=== PATIENT | female | born 1970 | race Caucasian/White ===

== ENCOUNTER → 2017-05-15 12:38 | Outpatient (REF) | payer BC, SELFPAY ==
[2017-05-15 18:14] LABS: Basophils # 0.1 K/mm3 (0-0.2); Basophils % 1.5 % (0.1-2.0); Eosinophils # 0.1 K/mm3 (0.0-0.4); Eosinophils % 1.5 % (0.1-12.0); Hematocrit 39.6 % (37.0-47.0); Hemoglobin 12.6 g/dL (12.2-16.2); Lymphocytes # 1.2 K/mm3 (0.7-4.5); Lymphocytes % 30.5 K/mm3 (10-50); Mean Corpuscular HGB Conc 31.8 g/dL (31.8-35.4); Mean Corpuscular Hemoglobin 30.1 pg (27.0-31.2); Mean Corpuscular Volume 94.8 fl (81-99); Monocytes # 0.2 K/mm3 (0.1-1.0); Monocytes % 5.2 % (1.7-9.3); Neutrophils # 2.4 K/mm3 (1.8-7.8); Neutrophils % 61.2 % (37.0-80.0); Platelet Count 192 K/mm3 (142-424); Red Blood Count 4.18 M/mm3 (4.20-5.40); Red Cell Distribution Width 13.1 % (11.5-17.5); White Blood Count 3.9 K/mm3 (4.8-10.8)
[2017-05-15 19:02] LABS: Erythrocyte Sedimentation Rate 20 mm/hr (0-20)
[2017-05-15 19:53] LABS: Alanine Aminotransferase 32 U/L (12-78); Albumin Level 4.1 gm/dL (3.4-5.0); Albumin/Globulin Ratio 1.4 (1.1-1.8); Alkaline Phosphatase 64 U/L (46-116); Anion Gap 13.5 mEq/L (5-15); Aspartate Amino Transferase 15 U/L (15-37); Bilirubin,Total 0.7 mg/dL (0.2-1.0); Blood Urea Nitrogen 15 mg/dL (7-18); Calcium 9.1 mg/dL (8.5-10.1); Carbon Dioxide 29 mmol/L (21.0-32.0); Chloride 105 mmol/L (98-107); Creatinine,Serum 0.82 mg/dL (0.55-1.02); Estimated Glomerular Filt Rate 76 ml/min (>60); Ferritin 105 ng/mL (8-388); GFR (African American) 92 ML/MIN (>60); Globulin 2.9 gm/dl (1.3-3.2); Glucose 142 mg/dL (74-106); Potassium 4.5 mmoL/L (3.5-5.1); Sodium 143 mmol/L (136-145); Thyroid Stimulating Hormone 1.01 uIU/ml (0.358-3.740)
[2017-05-17 09:20] LABS: Iron 99 ug/dL (27-159); UIBC 193 ug/dL (131-425)
[2017-05-19 12:01] LABS: Anti-Cyclic Citrullinated Pept 2 units (0-19); Iron Saturation 34 % (15-55); RA Latex Turbid. <10.0 IU/mL (0.0-13.9); Vitamin D 25 Hydroxy 29.9 ng/mL (30.0-100.0)
== END ==
LOC: LAB 12:38
PROVIDERS: Visit Provider Physician Assistant
DX: M06.9 Rheumatoid arthritis, unspecified (principal); H93.13 Tinnitus, bilateral; R53.83 Other fatigue
CPT/HCPCS: 80053; 82652; 82728; 83550; 84443; 85025; 85651; 86200; 86431

== ENCOUNTER → 2017-06-12 08:35 | Outpatient (REF) | payer BC, SELFPAY ==
[2017-06-12 14:03] LABS: Amphetamine/Metha Screen,Urine Negative ng/mL (<1000); Barbiturates Screen,Urine Negative ng/mL (<200); Benzodiazepines Screen,Urine Negative ng/mL (200); Cannabinoid Screen,Urine Negative ng/mL (<50); Cocaine Screen,Urine Negative ng/g (<300); Methadone Screen,Urine Negative ng/mL (<300); Opiate Screen,Urine Positive ng/mL (<300); Phencyclidine Screen,Urine Negative ng/mL (<25)
== END ==
LOC: LAB 08:35
PROVIDERS: Visit Provider Physician Assistant
DX: Z79.899 Other long term (current) drug therapy (principal)
CPT/HCPCS: 80305

== ENCOUNTER → 2017-07-03 08:47 | Outpatient (CLI) | payer BC, SELFPAY ==
--- NOTE | 2017-07-03 08:51 | XR_ITS ---
XR elbow RT min 3V, XR forearm RT 2V Ordering Physician: STEPHANIE Mendoza Patient Age: 46 years: Female HISTORY: ITS.REASON: pain after fall 06/29/17 TECHNIQUE: Right elbow: 3 view elbow right Right forearm 2 views COMPARISON :No previous RIGHT ELBOW: 3 view No discrete fracture identified nor dislocation. Upper normal anterior fat-pad probably within normal limits. No posterior fat pad. Radial head is intact. Elbow joint space well maintained. IMPRESSION Negative right elbow. No good evidence of fracture anterior fat pad appears upper normal prominence. If There is persistent pain consider follow-up RIGHT FOREARM 2 views The right form is intact with no fracture evident. Radius and ulna satisfactory. Normal contour. The forearm study includes 2 views of the elbow and wrist which are grossly unremarkable. IMPRESSION : negative right forearm no fracture..
--- NOTE | 2017-07-03 08:51 | XR_ITS ---
XR humerus RT Ordering Physician: STEPHANIE Mendoza Patient Age: 46 years: Female HISTORY: ITS.REASON: pain after fall 06/29/17 TECHNIQUE: 2 views humerus COMPARISON :None FINDINGS Right humerus is intact with no fracture evident. Regional soft tissues normal . Partially imaged right shoulder and elbow unremarkable on these IMPRESSION: Negative right humerus. No fracture
--- NOTE | 2017-07-03 08:51 | XR_ITS ---
XR shoulder RT min 2V Ordering Physician: STEPHANIE Mendoza Patient Age: 46 years: Female HISTORY: ITS.REASON: Pain after fall 06/29/17 TECHNIQUE: 3 views right shoulder COMPARISON :Right humerus from today otherwise no prior FINDINGS The right shoulder was intact with no fracture or dislocation evident. Humeral head and neck are intact. The glenoid and glenohumeral joint intact. AC joint intact. Upper right ribs right lung apex satisfactory. Scapula unremarkable on these images IMPRESSION: Negative right shoulder
== END ==
PROVIDERS: PCP Physician Assistant; Visit Provider Physician Assistant
DX: S49.91XA Unspecified injury of right shoulder and upper arm, initial encounter (principal)
CPT/HCPCS: 73030; 73060; 73080; 73090

== ENCOUNTER → 2017-08-03 14:46 | Outpatient (CLI) | payer BC, SELFPAY ==
--- NOTE | 2017-08-03 14:48 | XR_ITS ---
XR elbow RT min 3V HISTORY: Pain following injury ITS.REASON: right elbow injury ORDERING PHYSICIAN: STEPHANIE Mendoza PATIENT AGE: 46 years COMPARISON: FINDINGS: BONY STRUCTURES: No fracture or dislocation. No lytic or blastic change. Normal mineralization. SOFT TISSUES: Unremarkable. No radio opaque foreign bodies. No displaced fat pad. JOINT SPACE: Well-preserved. No significant arthritic changes evident. IMPRESSION: Negative elbow.
== END ==
PROVIDERS: PCP Physician Assistant; Visit Provider Physician Assistant
DX: S59.901A Unspecified injury of right elbow, initial encounter (principal)
CPT/HCPCS: 73080

== ENCOUNTER → 2017-09-06 16:52 | Outpatient (REF) | payer BC, SELFPAY ==
[2017-09-06 18:43] LABS: Basophils % 0.6 % (0.1-2.0); Eosinophils % 0.5 % (0.1-12.0); Hematocrit 37.9 % (37.0-47.0); Hemoglobin 11.8 g/dL (12.2-16.2); Lymphocytes # 1.6 K/mm3 (0.7-4.5); Lymphocytes % 34.5 K/mm3 (10-50); Mean Corpuscular HGB Conc 31.2 g/dL (31.8-35.4); Mean Corpuscular Hemoglobin 29.8 pg (27.0-31.2); Mean Corpuscular Volume 95.5 fl (81-99); Mean Platelet Volume 8.9 fl (7.4-10.4); Monocytes # 0.3 K/mm3 (0.1-1.0); Monocytes % 5.6 % (1.7-9.3); Neutrophils # 2.7 K/mm3 (1.8-7.8); Neutrophils % 58.8 % (37.0-80.0); Platelet Count 230 K/mm3 (142-424); Red Blood Count 3.97 M/mm3 (4.20-5.40); Red Cell Distribution Width 12.8 % (11.5-17.5); White Blood Count 4.6 K/mm3 (4.8-10.8)
[2017-09-06 19:27] LABS: Alanine Aminotransferase 31 U/L (12-78); Albumin/Globulin Ratio 1.4 (1.1-1.8); Alkaline Phosphatase 62 U/L (46-116); Anion Gap 11.9 mEq/L (5-15); Aspartate Amino Transferase 20 U/L (15-37); Bilirubin,Total 0.5 mg/dL (0.2-1.0); Blood Urea Nitrogen 15 mg/dL (7-18); Calcium 9.6 mg/dL (8.5-10.1); Carbon Dioxide 30 mmol/L (21.0-32.0); Chloride 104 mmol/L (98-107); Chol/HDL Ratio 2.4 (1-3.5); Cholesterol 186 mg/dL (140-200); Creatinine,Serum 0.71 mg/dL (0.55-1.02); Estimated Glomerular Filt Rate 89 ml/min (>60); GFR (African American) 108 ML/MIN (>60); Globulin 2.9 gm/dl (1.3-3.2); Glucose 87 mg/dL (74-106); HDL Cholesterol 79 mg/dL (29-89); LDL Cholesterol 90 mg/dL (0-130); Magnesium 1.9 mg/dL (1.4-2.2); Potassium 3.9 mmoL/L (3.5-5.1); Sodium 142 mmol/L (136-145); T4 (Thyroxine) 7.8 ug/dl (4.7-13.3); Thyroid Stimulating Hormone 0.87 uIU/ml (0.358-3.740); Total Protein,Serum 6.9 gm/dL (6.4-8.2); Triglycerides 83 mg/dL (30-200); VLDL Cholesterol 17 mg/dL (0-40)
== END ==
LOC: LAB 16:52
PROVIDERS: Visit Provider Physician Assistant
DX: G25.3 Myoclonus (principal)
CPT/HCPCS: 80053; 80061; 82652; 83735; 84436; 84443; 85025

== ENCOUNTER → 2017-10-30 08:21 | Outpatient (POV) | payer BC, SELFPAY | PROVIDERS: Family Provider Internal Medicine Adolescent Medicine; PCP Physician Assistant; Visit Provider Specialist | DX: G25.3 Myoclonus (principal) | CPT/HCPCS: 95819 ==

== ENCOUNTER → 2017-11-28 09:05 | Outpatient (REF) | payer BC, SELFPAY ==
[2017-12-01 13:20] LABS: Folate 6.6 ng/mL (>3.0); Vitamin B12 770 pg/mL (232-1245)
== END ==
LOC: LAB 09:05
PROVIDERS: Visit Provider Physician Assistant
DX: M25.569 Pain in unspecified knee (principal)
CPT/HCPCS: 82607; 82746

== ENCOUNTER → 2017-12-01 15:13 | Outpatient (CLI) | payer BC, SELFPAY ==
--- NOTE | 2017-12-01 15:15 | XR_ITS ---
XR hip BI w PEL1V Ordering Physician: Sonia Rivera Patient Age: 46 years: Female HISTORY: ITS.REASON: pain knee pain. Legs give out. Resulting in patient falls. Knee pain greater than hip pain/discomfort . TECHNIQUE: AP pelvis radiograph with bilateral hips AP to include: frog-leg view left hip and right hip COMPARISON :None relevant ======== AP PELVIS. Osseous pelvis appears intact. No fracture or acute findings. No significant findings Hip joint spaces well-maintained. AP view the hips unremarkable. Sacrum and SI joint satisfactory. ====== RIGHT HIP: Negative, & intact. No fracture nor dislocation. femoral head and neck intact. Right hip joint space well maintained... No significant findings at the right hip. Femoral head normal contour with femoral neck intact ========= LEFT HIP : femoral head and neck intact. The left hip joint space well maintained... No significant findings at the left hip. Femoral head normal contour and density ----IMPRESSION 1. Osseous pelvis intact. & Negative 2. Right and left hip intact. & Negative Hip joint spaces well maintained bilateral
--- NOTE | 2017-12-01 15:15 | XR_ITS ---
XR knee RT 4V Ordering Physician: Sonia Rivera Patient Age: 46 years: Female HISTORY: ITS.REASON: pain TECHNIQUE: 3 views right knee COMPARISON :Left knee from today FINDINGS Right knee intact and negative. Joint spaces well-maintained. No joint effusion. Bones well mineralized. Normal relationships. Consider sunrise view right left knee if symptoms persist and/or if if there is any patella tracking abnormality suggested clinically IMPRESSION: Right knee intact. Negative
--- NOTE | 2017-12-01 15:15 | XR_ITS ---
XR knee LT 4V Ordering Physician: Sonia Rivera Patient Age: 46 years: Female HISTORY: ITS.REASON: Left knee pain .. Weakness. TECHNIQUE: 3 views left knee AP lateral and oblique COMPARISON :March 2017 FINDINGS . No joint effusion. No evidence of fracture. Joint spaces well-maintained. Been subtlelucent line passing vertically oblique fashion through the lateral femoral condyle and continuing through the lateral tibia just lateral to the tibial spine is seen only on AP view it appears to be a artifact line. It likely fat plane . Bones well mineralized. Patella normal lateral view IMPRESSION: Left knee intact./Negative Joint spaces well-maintained. No effusion or acute findings. .
== END ==
PROVIDERS: PCP Physician Assistant; Visit Provider Nurse Practitioner Family
DX: M25.562 Pain in left knee (principal); M25.561 Pain in right knee; M25.551 Pain in right hip; M25.552 Pain in left hip
CPT/HCPCS: 73521; 73564

== ENCOUNTER 2017-12-29 09:00 | Outpatient (RCR) | payer BC, SELFPAY ==
--- NOTE | 2017-12-05 10:47 | [facility].PTOPEV ---
PT Outpatient Evaluation Rehab PT Outpatient Evaluation Start: 12/05/17 10:35 Freq: Status: Active Protocol: Document 12/05/17 10:36 [facility] (Rec: 12/05/17 10:46 NARA [id number]) Electronically Signed By Dario Bass, PT 12/05/17 10:36 Outpatient Therapy Subjective History Subjective History Pt is a 46 year old female presenting to outpatient PT with reports of left medial knee pain staring 07/2017 after a fall when stepping out of the shower at home. No previous Rx for knee pain. Pt reports popping, clicking, locking and giving out. Chief Complaint Pain Stiff Swelling Catches/Locks Gives out/Unstable Symptom Type Ache Sharp Stabbing Burning Symptoms Relieved By Rest/Positioning Heat Ice Prescription Meds Prior Functional Limitations None Current Functional Limitations Housework Standing Sitting Squatting Recreation Activity Walking Stairs Bending/Stooping Symptom Description Constant and Continuous Level of pain today (0-10) 5 Pain scale - at its best (0-10) 3 Pain scale - at its worst (0-10) 8 Hip/Knee Eval Gait Observation General Gait Pattern Observation Antalgic Gait Assistive Device Assistive Devices None / NA Palpation Tenderness left Knee Palpation Finding Tenderness Knee Palpation Overall Comment medial jt line, pes anserene Hip Palpation Findings Tenderness MMT right Hip Flexion Strength Grade 4 Good Hip Abduction Strength Grade 4 Good Hip Adduction Strength Grade 4 Good Hip Extension Strength Grade 4 Good Hip External Rotation Strength Grade 4 Good Hip Internal Rotation Strength Grade 4 Good Knee Extension Strength Grade 4 Good Knee Flexion Strength Grade 4 Good left Hip Abduction Strength Grade 4- Good- Hip Adduction Strength Grade 4- Good- Hip Extension Strength Grade 4- Good- Hip External Rotation Strength Grade 4 Good Hip Internal Rotation Strength Grade 4- Good- Knee Extension Stre
== END 2017-12-29 09:01 | disposition home or self-care (01) ==
LOC: PT 09:00
PROVIDERS: Family Provider Internal Medicine Adolescent Medicine; PCP Physician Assistant; Visit Provider Physician Assistant
DX: M25.562 Pain in left knee (principal); M48.02 Spinal stenosis, cervical region
CPT/HCPCS: 97010; 97014; 97035; 97110; 97140; 97163; G0283

== ENCOUNTER → 2017-12-29 09:42 | Outpatient (CLI) | payer BC, SELFPAY ==
--- NOTE | 2017-12-29 09:47 | US_ITS ---
US extremity LT limited HISTORY: ITS.REASON: nodule left thigh ORDERING PHYSICIAN: STEPHANIE Mendoza PATIENT AGE: 47 years COMPARISON: None FINDINGS: Palpable nodule along the aspect of the left thigh was scanned and shows a slightly hyperechoic fairly well-circumscribed subcutaneous nodule which measures 14 x 10 x 7 mm consistent with a lipoma. No posterior acoustical shadowing. No hypervascularity. IMPRESSION: Palpable abnormality of the left thigh appears to represent a lipoma
== END ==
PROVIDERS: Family Provider Internal Medicine Adolescent Medicine; PCP Physician Assistant; Visit Provider Physician Assistant
DX: R22.42 Localized swelling, mass and lump, left lower limb (principal)
CPT/HCPCS: 76882

== ENCOUNTER → 2018-01-15 16:22 | Outpatient (CLI) | payer BC, SELFPAY ==
--- NOTE | 2018-01-15 16:23 | MR_ITS ---
MR knee LT wo con HISTORY: Left knee pain and swelling with limited range of motion ITS.REASON: Left knee pain ORDERING PHYSICIAN: STEPHANIE Mendoza PATIENT AGE: 47 years Comparison: 12/01/2017 TECHNIQUE: Standard multiplanar multiecho sequences are performed without contrast. FINDINGS: The cruciate ligaments are intact. The collateral ligaments, patellar tendon, quadriceps tendon have an unremarkable appearance. There is a horizontal tear involving the posterior horn of the medial meniscus which extends to the tibial articular surface. The tear is nondisplaced. The lateral meniscus has an unremarkable appearance. The patellar cartilage is preserved. No fracture or dislocation. No bone bruises. There is a small knee joint effusion. No significant arthritic changes. IMPRESSION: Nondisplaced horizontal tear involves the posterior horn of the medial meniscus
== END ==
PROVIDERS: Family Provider Internal Medicine Adolescent Medicine; PCP Physician Assistant; Visit Provider Physician Assistant
DX: M25.562 Pain in left knee (principal)
CPT/HCPCS: 73721

== ENCOUNTER → 2018-06-01 10:01 | Outpatient (CLI) | payer BC, SELFPAY ==
[2018-06-01 10:23] LABS: Basophils # 0.1 K/mm3 (0-0.2); Basophils % 1.1 % (0.1-2.0); Eosinophils # 0.1 K/mm3 (0.0-0.4); Hematocrit 37.8 % (37.0-47.0); Hemoglobin 12.3 g/dL (12.2-16.2); Lymphocytes # 1.9 K/mm3 (0.7-4.5); Lymphocytes % 41.6 % (10-50); Mean Corpuscular HGB Conc 32.5 g/dL (31.8-35.4); Mean Corpuscular Hemoglobin 31.3 pg (27.0-31.2); Mean Corpuscular Volume 96.2 fl (81-99); Mean Platelet Volume 9.4 fl (7.4-10.4); Monocytes # 0.2 K/mm3 (0.1-1.0); Monocytes % 4.8 % (1.7-9.3); Neutrophils # 2.3 K/mm3 (1.8-7.8); Neutrophils % 50.5 % (37.0-80.0); Platelet Count 241 K/mm3 (142-424); Red Blood Count 3.93 M/mm3 (4.20-5.40); Red Cell Distribution Width 13.3 % (11.5-17.5); White Blood Count 4.5 K/mm3 (4.8-10.8)
[2018-06-01 12:25] LABS: Alanine Aminotransferase 27 U/L (12-78); Albumin Level 4.1 gm/dL (3.4-5.0); Albumin/Globulin Ratio 1.4 (1.1-1.8); Alkaline Phosphatase 74 U/L (46-116); Anion Gap 14.1 mEq/L (5-15); Aspartate Amino Transferase 11 U/L (15-37); Bilirubin,Total 0.5 mg/dL (0.2-1.0); Blood Urea Nitrogen 17 mg/dL (7-18); Calcium 9.7 mg/dL (8.5-10.1); Carbon Dioxide 28 mmol/L (21.0-32.0); Chloride 103 mmol/L (98-107); Creatinine,Serum 0.86 mg/dL (0.55-1.02); Estimated Glomerular Filt Rate 71 ml/min (>60); Free Thyroxine Index 2.4 ug/dL (5.93-13.13); GFR (African American) 86 ML/MIN (>60); Globulin 2.9 gm/dl (1.3-3.2); Glucose 97 mg/dL (74-106); Potassium 4.1 mmoL/L (3.5-5.1); Sodium 141 mmol/L (136-145); T4 (Thyroxine) 7.6 ug/dl (4.7-13.3); Thyroid Stimulating Hormone 1.38 uIU/ml (0.358-3.740); Triiodothryronine (T3) Uptake 32 % (31-39)
[2018-06-01 15:35] LABS: Erythrocyte Sedimentation Rate 23 mm/hr (0-20)
[2018-06-02 08:20] LABS: Testosterone,Total <3 ng/dL (8-48)
[2018-06-04 13:23] LABS: FSH 115.5 mIU/mL (.); Folate 8.1 ng/mL (>3.0); LH 34.9 mIU/mL (.); Vitamin B12 824 pg/mL (232-1245); Vitamin D 25 Hydroxy 27.5 ng/mL (30.0-100.0)
[2018-06-04 13:25] LABS: Estrogen 35 pg/mL (.)
== END ==
PROVIDERS: Visit Provider Physician Assistant
DX: F39 Unspecified mood [affective] disorder (principal); R53.83 Other fatigue; M06.9 Rheumatoid arthritis, unspecified
CPT/HCPCS: 36415; 80053; 82607; 82652; 82672; 82746; 83001; 83002; 84403; 84436; 84443; 84479; 85025; 85651

== ENCOUNTER → 2018-06-19 12:34 | Outpatient (CLI) | payer BC, SELFPAY ==
[2018-06-19 15:09] LABS: Ferritin 97 ng/mL (8-388)
[2018-06-20 08:33] LABS: Iron 79 ug/dL (27-159); UIBC 247 ug/dL (131-425)
[2018-06-20 08:46] LABS: Iron Saturation 24 % (15-55)
[2018-06-21 12:35] LABS: Peripheral Smear Review Scanned Result
== END ==
PROVIDERS: Visit Provider Physician Assistant
DX: M89.8X9 Other specified disorders of bone, unspecified site (principal); D64.9 Anemia, unspecified
CPT/HCPCS: 36415; 82728; 83540; 83550

== ENCOUNTER → 2018-06-29 17:05 | Outpatient (CLI) | payer BC, SELFPAY ==
[2018-06-29 18:21] LABS: Amphetamine/Metha Screen,Urine Negative ng/mL (<1000); Barbiturates Screen,Urine Negative ng/mL (<200); Benzodiazepines Screen,Urine Negative ng/mL (<200); Cannabinoid Screen,Urine Negative ng/mL (<50); Cocaine Screen,Urine Negative ng/mL (<300); Methadone Screen,Urine Negative ng/mL (<300); Opiate Screen,Urine Positive ng/mL (<300); Phencyclidine Screen,Urine Negative ng/mL (<25)
== END ==
PROVIDERS: Visit Provider Nurse Practitioner Family
DX: Z79.899 Other long term (current) drug therapy (principal)
CPT/HCPCS: 80305

== ENCOUNTER → 2018-09-21 12:54 | Outpatient (CLI) | payer BC, SELFPAY ==
[2018-09-21 14:44] LABS: Amphetamine/Metha Screen,Urine Negative ng/mL (<1000); Barbiturates Screen,Urine Positive ng/mL (<200); Benzodiazepines Screen,Urine Negative ng/mL (<200); Cannabinoid Screen,Urine Negative ng/mL (<50); Cocaine Screen,Urine Negative ng/mL (<300); Methadone Screen,Urine Negative ng/mL (<300); Opiate Screen,Urine Positive ng/mL (<300); Phencyclidine Screen,Urine Negative ng/mL (<25)
[2018-09-27 11:14] LABS: Barbiturates Negative (Cutoff=200); Codeine Negative (Cutoff=100); Hydrocodone Positive (.); Hydromorphone Positive (.); Morphine Negative (Cutoff=100)
[2018-09-27 19:10] LABS: Hydrocodone Confirm 1558 ng/mL (Cutoff=100); Hydromorphone Confirm 1984 ng/mL (Cutoff=100); Opiates Positive (.)
== END ==
PROVIDERS: Visit Provider Nurse Practitioner Family
DX: Z79.899 Other long term (current) drug therapy (principal); M25.562 Pain in left knee
CPT/HCPCS: 80305; 80345; 80361; G0480

== ENCOUNTER → 2018-12-20 16:36 | Outpatient (CLI) | payer BC, SELFPAY ==
[2018-12-20 17:35] LABS: Amphetamine/Metha Screen,Urine Positive ng/mL (<1000); Barbiturates Screen,Urine Negative ng/mL (<200); Benzodiazepines Screen,Urine Negative ng/mL (<200); Cannabinoid Screen,Urine Negative ng/mL (<50); Cocaine Screen,Urine Negative ng/mL (<300); Methadone Screen,Urine Negative ng/mL (<300); Opiate Screen,Urine Positive ng/mL (<300); Phencyclidine Screen,Urine Negative ng/mL (<25)
== END ==
PROVIDERS: Visit Provider Nurse Practitioner Family
DX: M54.9 Dorsalgia, unspecified (principal)
CPT/HCPCS: 80305

== ENCOUNTER → 2019-01-25 08:11 | Outpatient (CLI) | payer BC, SELFPAY ==
--- NOTE | 2019-01-25 08:15 | MM_ITS ---
PROCEDURE: MM DIG SC MAMM IMPLANT BI CAD Patient Age:48Y CLINICAL INDICATION: screening. No hormones no new complaints. Noncontributory family history. Routine screening. Previous benign excisional biopsy right breast but Family history: Maternal and paternal grandmother with breast cancer. Also aunts COMPARISON: No previous mammogram study. Baseline mammogram There is a right breast US BREAST-RT COMPLETE W/AXILLA from 09/12/2016 TECHNIQUE: Adam technique utilized: Standard CC and MLO images with and without implant bilaterally obtained. R2 CAD reviewed. I would note, imaging breast with implants is inherently somewhat limited, as the implants may potentially obscure portions of the breast. Cc and MLO views including of breast including implant and breast overlying the displaced implant obtained. FINDINGS: No previous mammogram for comparison. Bilateral breast implants with moderately dense, mild asymmetry breast tissue period slightly more evident fibroglandular tissue is seen at the right breast than left. However no focal area of concern identified. No dominant nor suspicious mass but the views of breast tissue overlying the implant on right or particularly helpful and the areas of denser tissue appear to compress out with no focal area of significant concern either breast. Bilateral follow-up in 1 year recommended and would be encouraged to further confirm baseline IMPRESSION: Baseline mammograms Bilateral breast implants along with regions denser breast tissue do somewhat limit mammography bilateral... However no areas of significant suspicion or concern. Mild asymmetry but no focal discrete or dominant mass. The skin no suspicious calcifications . Bilateral follow-up 1 year recommended BI-RAD Category: 2 Benign Finding(s) FOLLOW-UP: 1YR 1 Year Follow-up (A letter has been sent to the patient regarding results of the study.) Dictated by: Geronimo Griffin MD 01/31/2019 13:04 Electronically signed by Geronimo Griffin MD in [place] 01/31/2019 13:04
== END ==
PROVIDERS: PCP Physician Assistant; Visit Provider Nurse Practitioner Family
DX: Z12.31 Encounter for screening mammogram for malignant neoplasm of breast (principal)
CPT/HCPCS: 77067

== ENCOUNTER → 2019-04-23 16:33 | Outpatient (CLI) | payer BC, SELFPAY ==
[2019-04-23 16:48] LABS: Basophils # 0.1 K/mm3 (0-0.2); Basophils % 1.1 % (0.1-2.0); Eosinophils # 0.1 K/mm3 (0.0-0.4); Hematocrit 37.3 % (37.0-47.0); Hemoglobin 12.3 g/dL (12.2-16.2); Lymphocytes # 2.1 K/mm3 (0.7-4.5); Lymphocytes % 39.5 % (10-50); Mean Corpuscular HGB Conc 32.9 g/dL (31.8-35.4); Mean Corpuscular Hemoglobin 30.6 pg (27.0-31.2); Monocytes # 0.3 K/mm3 (0.1-1.0); Monocytes % 6.2 % (1.7-9.3); Neutrophils # 2.7 K/mm3 (1.8-7.8); Neutrophils % 51.2 % (37.0-80.0); Platelet Count 295 K/mm3 (142-424); Red Blood Count 4.01 M/mm3 (4.20-5.40); White Blood Count 5.3 K/mm3 (4.8-10.8)
[2019-04-23 18:15] LABS: Alanine Aminotransferase 21 U/L (12-78); Albumin/Globulin Ratio 1.4 (1.1-1.8); Alkaline Phosphatase 65 U/L (46-116); Anion Gap 12.9 mEq/L (5-15); Aspartate Amino Transferase 17 U/L (15-37); Bilirubin,Total 0.5 mg/dL (0.2-1.0); Blood Urea Nitrogen 17 mg/dL (7-18); Calcium 9.4 mg/dL (8.5-10.1); Carbon Dioxide 32 mmol/L (21.0-32.0); Chloride 103 mmol/L (98-107); Cholesterol 201 mg/dL (140-200); Creatinine,Serum 0.83 mg/dL (0.55-1.02); Estimated Glomerular Filt Rate 74 ml/min (>60); GFR (African American) 90 ML/MIN (>60); Globulin 2.8 gm/dl (1.3-3.2); Glucose 107 mg/dL (74-106); HDL Cholesterol 67 mg/dL (29-89); LDL Cholesterol 102 mg/dL (0-130); Potassium 3.9 mmoL/L (3.5-5.1); Sodium 144 mmol/L (136-145); T4 (Thyroxine) 9.6 ug/dl (4.7-13.3); Thyroid Stimulating Hormone 1.48 uIU/ml (0.358-3.740); Total Protein,Serum 6.8 gm/dL (6.4-8.2); Triglycerides 162 mg/dL (30-200); VLDL Cholesterol 32 mg/dL (0-40)
[2019-04-25 06:19] LABS: Testosterone,Total <3 ng/dL (8-48)
[2019-04-25 12:31] LABS: FSH 130.9 mIU/mL (.); LH 45.9 mIU/mL (.); Progesterone <0.1 ng/mL (.); Vitamin B12 684 pg/mL (232-1245); Vitamin D 25 Hydroxy 29.4 ng/mL (30.0-100.0)
[2019-04-27 09:34] LABS: Estrogen 38 pg/mL (.)
== END ==
PROVIDERS: Visit Provider Physician Assistant
DX: R53.83 Other fatigue (principal); E55.9 Vitamin D deficiency, unspecified; Z79.899 Other long term (current) drug therapy
CPT/HCPCS: 80053; 80061; 82607; 82652; 82672; 83001; 83002; 84144; 84403; 84436; 84443; 85025

== ENCOUNTER → 2019-04-24 09:33 | Outpatient (CLI) | payer BC, SELFPAY ==
--- NOTE | 2019-04-24 09:34 | CA_ITS ---
APPROVED REPORT Left Lower Extremity Venous Study for DVT. Safety Officer: CITLALI Indications Lower Extremity Pain: Left lower extremity pain. Denies trauma. States she took hormones for 13 years and stopped them 1 year ago. Pain is around the popliteal region. Vein Imaging CFV (L): compressive, spontaneous, phasic, augmentation FEM (L): compressive, spontaneous, phasic, augmentation POP (L): compressive, spontaneous, phasic, augmentation PTV (L): Compressible GSV (L): compressive, spontaneous, phasic, augmentation SSV (L): Compressible Peroneals (L):Compressible GAS (L): Compressible Findings No evidence of DVT or superficial thrombophlebitis in the veins scanned of the left lower extremity. Conclusion No evidence of DVT or superficial thrombophlebitis in the veins scanned of the left lower extremity. Electronically signed by : Robin Caballero, 04/24/2019 17:50:44
== END ==
PROVIDERS: PCP Physician Assistant; Visit Provider Physician Assistant
DX: M79.605 Pain in left leg (principal)
CPT/HCPCS: 93971

== ENCOUNTER → 2019-09-19 13:30 | Outpatient (CLI) | payer BC, SELFPAY ==
[2019-09-20 17:50] LABS: Covid-19 Nasal PCR Sendout Lex Not Detected
== END ==
PROVIDERS: PCP Emergency Medicine; Visit Provider Emergency Medicine
DX: Z03.818 Encounter for observation for suspected exposure to other biological agents ruled out (principal)
CPT/HCPCS: U0004

== ENCOUNTER → 2019-11-19 17:37 | Outpatient (CLI) | payer BC, SELFPAY ==
[2019-11-19 18:15] LABS: Basophils % 0.5 % (0.1-2.0); Eosinophils # 0.1 K/mm3 (0.0-0.4); Eosinophils % 1.5 % (0.1-12.0); Hematocrit 38.8 % (37.0-47.0); Lymphocytes # 2.3 K/mm3 (0.7-4.5); Lymphocytes % 35.7 % (10-50); Mean Corpuscular HGB Conc 33.6 g/dL (31.8-35.4); Mean Corpuscular Hemoglobin 31.6 pg (27.0-31.2); Mean Corpuscular Volume 93.9 fl (81-99); Mean Platelet Volume 8.5 fl (7.4-10.4); Monocytes # 0.3 K/mm3 (0.1-1.0); Monocytes % 5.2 % (1.7-9.3); Neutrophils # 3.6 K/mm3 (1.8-7.8); Neutrophils % 57.1 % (37.0-80.0); Platelet Count 266 K/mm3 (142-424); Red Blood Count 4.13 M/mm3 (4.20-5.40); Red Cell Distribution Width 13.2 % (11.5-17.5); White Blood Count 6.3 K/mm3 (4.8-10.8)
[2019-11-19 19:27] LABS: Hemoglobin A1C 5.6 % (4.0-6.0)
[2019-11-19 19:30] LABS: Alanine Aminotransferase 56 U/L (12-78); Albumin Level 4.6 g/dl (3.5-5.0); Albumin/Globulin Ratio 1.8 (1.1-1.8); Alkaline Phosphatase 75 U/L (38-126); Anion Gap 11.1 mEq/L (5-15); Aspartate Amino Transferase 91 U/L (14-36); Bilirubin,Total 0.8 mg/dl (0.2-1.3); Blood Urea Nitrogen 14 mg/dl (7-17); Calcium 9.9 mg/dl (8.4-10.2); Carbon Dioxide 29 mmol/L (22.0-30.0); Chloride 102 mmol/L (98-107); Estimated Glomerular Filt Rate 90 ml/min (>60); GFR (African American) 109 ML/MIN (>60); Globulin 2.5 g/dL (1.3-3.2); Glucose 110 mg/dl (74-100); Potassium 4.1 mmoL/L (3.5-5.1); Sodium 138 mmol/L (136-145); Total Protein,Serum 7.1 g/dl (6.3-8.2)
[2019-11-19 20:20] LABS: Erythrocyte Sedimentation Rate 19 mm/hr (0-20)
[2019-11-19 22:09] LABS: T4 (Thyroxine) 8.8 ug/dl (5.53-11.0)
[2019-11-19 22:21] LABS: Thyroid Stimulating Hormone 1.69 uIU/mL (0.465-4.68)
[2019-11-21 06:20] LABS: LH 44.5 mIU/mL (.); Vitamin B12 772 pg/mL (232-1245)
[2019-11-21 17:37] LABS: Peripheral Smear Review Scanned Result
[2019-11-24 15:09] LABS: Vitamin B6 19.2 ug/L (2.0-32.8)
[2019-11-24 15:10] LABS: 1,25 Dihydroxy Vitamin D 52 pg/mL (.); 1,25-Dihydroxy, Vitamin D-2 13 pg/mL (.); 1,25-Dihydroxy, Vitamin D-3 39 pg/mL (.)
[2019-11-25 11:16] LABS: Estrogen 43 pg/mL (.)
[2019-11-26 08:13] LABS: Testosterone, Total, LC/MS 10.2 ng/dL (.); Testosterone,Free <0.2 pg/mL (0.0-4.2)
== END ==
PROVIDERS: Visit Provider Physician Assistant
DX: M25.50 Pain in unspecified joint (principal); R53.83 Other fatigue; R23.3 Spontaneous ecchymoses
CPT/HCPCS: 80053; 82607; 82652; 82672; 83001; 83002; 83036; 84207; 84402; 84403; 84436; 84443; 85025; 85651; 86140

== ENCOUNTER → 2020-02-25 16:32 | Outpatient (CLI) | payer BC, SELFPAY ==
--- NOTE | 2020-02-25 16:34 | XR_ITS ---
PROCEDURE: XR CHEST 2V CLINICAL HISTORY: Cough Cough COMPARISON: No exams were available for comparison FINDINGS: The cardiomediastinal silhouette and pulmonary vascularity are within normal limits. The lungs are clear without infiltrates, suspicious nodules, or pleural effusions. No acute bony abnormalities. IMPRESSION: No acute findings. Dictated by: Todd Calderon MD 02/25/2020 16:48 Todd Calderon MD in [place] 02/25/2020 16:48
== END ==
PROVIDERS: PCP Emergency Medicine; Visit Provider Physician Assistant
DX: R05 Cough (principal)
CPT/HCPCS: 71046

== ENCOUNTER → 2020-04-07 12:01 | Outpatient (CLI) | payer BC, SELFPAY | PROVIDERS: PCP Physician Assistant; Visit Provider Physician Assistant | DX: Z20.828 Contact with and (suspected) exposure to other viral communicable diseases (principal); U07.1 COVID-19 | CPT/HCPCS: U0003 ==

== ENCOUNTER → 2020-05-07 10:22 | Outpatient (CLI) | payer BC, SELFPAY ==
--- NOTE | 2020-05-07 10:28 | XR_ITS ---
PROCEDURE: XR CHEST 2V CLINICAL HISTORY: dyspnea s/p COVID19 COMPARISON: CR XR CHEST 2V from 02/25/2020 FINDINGS: The cardiomediastinal silhouette and pulmonary vascularity are within normal limits. The lungs are clear without infiltrates, suspicious nodules, or pleural effusions. No acute bony abnormalities. IMPRESSION: No acute findings. Dictated by: Todd Calderon MD 05/07/2020 12:54 Todd Calderon MD in [place] 05/07/2020 12:54
== END ==
PROVIDERS: PCP Physician Assistant; Visit Provider Physician Assistant
DX: R06.00 Dyspnea, unspecified (principal)
CPT/HCPCS: 71046

== ENCOUNTER → 2020-06-08 13:56 | Outpatient (CLI) | payer BC, SELFPAY ==
[2020-06-08 14:11] LABS: Alanine Aminotransferase 81 U/L (12-78); Albumin Level 4.7 g/dl (3.5-5.0); Alkaline Phosphatase 82 U/L (38-126); Anion Gap 10.4 mEq/L (5-15); Aspartate Amino Transferase 66 U/L (14-36); Bilirubin,Total 0.8 mg/dl (0.2-1.3); Blood Urea Nitrogen 12 mg/dl (7-17); Calcium 10.2 mg/dl (8.4-10.2); Carbon Dioxide 30 mmol/L (22.0-30.0); Chloride 104 mmol/L (98-107); Chol/HDL Ratio 3.1 (1-3.5); Cholesterol 248 mg/dl (140-200); Estimated Glomerular Filt Rate 90 ml/min (>60); GFR (African American) 109 ML/MIN (>60); Globulin 2.4 g/dL (1.3-3.2); Glucose 112 mg/dl (74-100); HDL Cholesterol 80 mg/dl (40-60); Potassium 4.4 mmoL/L (3.5-5.1); Sodium 140 mmol/L (136-145); Total Protein,Serum 7.1 g/dl (6.3-8.2); Triglycerides 173 mg/dl (30-150); VLDL Cholesterol 35 mg/dL (0-40)
[2020-06-08 14:23] LABS: Basophils # 0.1 K/mm3 (0-0.2); Basophils % 1.3 % (0.1-2.0); Direct LDL Cholesterol 92.18 mg/dL (100-129); Eosinophils # 0.2 K/mm3 (0.0-0.4); Eosinophils % 3.5 % (0.1-12.0); Hemoglobin 12.6 g/dL (12.2-16.2); Lymphocytes # 1.4 K/mm3 (0.7-4.5); Mean Corpuscular HGB Conc 32.4 g/dL (31.8-35.4); Mean Corpuscular Hemoglobin 30.8 pg (27.0-31.2); Mean Corpuscular Volume 95.1 fl (81-99); Mean Platelet Volume 8.4 fl (7.4-10.4); Monocytes # 0.2 K/mm3 (0.1-1.0); Monocytes % 5.7 % (1.7-9.3); Neutrophils # 2.4 K/mm3 (1.8-7.8); Neutrophils % 57.4 % (37.0-80.0); Platelet Count 257 K/mm3 (142-424); Red Cell Distribution Width 13.5 % (11.5-17.5); White Blood Count 4.2 K/mm3 (4.8-10.8)
[2020-06-08 14:29] LABS: T4 (Thyroxine) 8.5 ug/dl (5.53-11.0)
[2020-06-08 14:42] LABS: Thyroid Stimulating Hormone 0.88 uIU/mL (0.465-4.68)
[2020-06-08 14:54] LABS: Erythrocyte Sedimentation Rate 25 mm/hr (0-20)
[2020-06-08 15:00] LABS: Vitamin B12 740 pg/mL (239-931)
[2020-06-10 13:28] LABS: Thyroid Peroxidase Antibodies <9 IU/mL (0-34)
[2020-06-12 10:42] LABS: Thyroid Stimulating Immunoglob <0.10 IU/L (0.00-0.55)
== END ==
PROVIDERS: Visit Provider Physician Assistant
DX: M06.9 Rheumatoid arthritis, unspecified (principal); R53.83 Other fatigue
CPT/HCPCS: 80053; 80061; 82607; 84436; 84443; 84445; 85025; 85651; 86140; 86376

== ENCOUNTER → 2020-08-03 18:02 | Outpatient (CLI) | payer BC, SELFPAY ==
[2020-08-03 18:35] LABS: Basophils # 0.1 K/mm3 (0-0.2); Eosinophils # 0.1 K/mm3 (0.0-0.4); Eosinophils % 2.1 % (0.1-12.0); Hematocrit 35.5 % (37.0-47.0); Hemoglobin 11.8 g/dL (12.2-16.2); Lymphocytes # 1.4 K/mm3 (0.7-4.5); Lymphocytes % 27.1 % (10-50); Mean Corpuscular HGB Conc 33.2 g/dL (31.8-35.4); Mean Corpuscular Hemoglobin 30.7 pg (27.0-31.2); Mean Corpuscular Volume 92.5 fl (81-99); Mean Platelet Volume 8.4 fl (7.4-10.4); Monocytes # 0.3 K/mm3 (0.1-1.0); Monocytes % 6.4 % (1.7-9.3); Neutrophils # 3.2 K/mm3 (1.8-7.8); Neutrophils % 63.5 % (37.0-80.0); Platelet Count 237 K/mm3 (142-424); Red Blood Count 3.84 M/mm3 (4.20-5.40); Red Cell Distribution Width 12.8 % (11.5-17.5)
[2020-08-05 18:02] LABS: Peripheral Smear Review Scanned Result
== END ==
PROVIDERS: Visit Provider Physician Assistant
DX: M79.7 Fibromyalgia (principal); R53.83 Other fatigue
CPT/HCPCS: 85025

== ENCOUNTER → 2020-08-27 07:51 | Outpatient (CLI) | payer BC, SELFPAY ==
--- NOTE | 2020-08-27 07:51 | MR_ITS ---
PROCEDURE: MR CERVICAL SPINE WO CON CLINICAL INDICATION: Neck pain radiating into head Numbness in 4th-5th digit of lt hand x1yr. Headache. Lt arm numbness. COMPARISON: No exams were available for comparison TECHNIQUE: Standard multiplanar multiecho sequences are performed without contrast. 3-D MIP and myelographic images are also rendered and reviewed FINDINGS: There is normal alignment. The craniocervical junction has an unremarkable appearance. C2-C3: Unremarkable. C3-C4: Minimal bulging disc. C4-C5: Minimal bulging disc. C5-C6: Minimal bulging disc with a small right paracentral disc protrusion abutting the exiting C5 nerve root medially. The protruding disc is causing narrowing of the canal on the right at 10 mm without cord compression. C6-C7: Unremarkable. C7-T1: Unremarkable. Spinal cord has an unremarkable appearance. IMPRESSION: 1. Mild multilevel degenerative changes with minimal bulging disc. Please see above for detailed description at each level. 2. Minimal bulging disc with small right paracentral disc protrusion at C5-C6 abutting the exiting C5 nerve root medially with narrowing of the canal at 10 mm. Dictated by: Todd Calderon MD 08/28/2020 12:10 Todd Calderon MD in [place] 08/28/2020 12:10
--- NOTE | 2020-08-27 07:51 | MR_ITS ---
PROCEDURE: MR LUMBAR SPINE WO CON CLINICAL INDICATION: Low back pain, LLE radiculopathy Gets a catch in back and unable to stand. Lt leg pain. Tinging in toes in lt foot. Symptoms xyrs. COMPARISON: MR [employer]/O MRI-L-SPINE W/O from 09/15/2015 MR KNEELTWO MR knee LT wo con from 01/15/2018 TECHNIQUE: Standard multiplanar multiecho sequences are performed without contrast. 3-D MIP and myelographic images are also rendered and reviewed FINDINGS: There is normal alignment. Spinal cord ends at the L1-L2 level. L1-L2: Unremarkable. L2-L3: Unremarkable. L3-L4: Minimal bulging disc and mild facet hypertrophic change not significantly changed.. L4-5: Mild facet hypertrophy.. L5-S1: Bulging disc with a small left paracentral disc protrusion abutting the medial aspect of the left S1 nerve root without significant displacement. This has developed since the previous exam. IMPRESSION: There is a new small left paracentral disc protrusion at L5-S1 abutting the medial aspect of the S1 nerve root. No other significant changes apparent. There are mild facet hypertrophic changes. Dictated by: Todd Calderon MD 08/28/2020 11:57 Todd Calderon MD in [place] 08/28/2020 11:57
== END ==
PROVIDERS: PCP Physician Assistant; Visit Provider Physician Assistant
DX: M48.02 Spinal stenosis, cervical region (principal); M48.061 Spinal stenosis, lumbar region without neurogenic claudication
CPT/HCPCS: 72141; 72148; 76376

== ENCOUNTER → 2020-11-17 08:12 | Outpatient (CLI) | payer BC, SELFPAY ==
--- NOTE | 2020-11-17 08:13 | CA_ITS ---
APPROVED REPORT Left Lower Extremity Venous Study for DVT. Digital Marketing Project Manager: MARVIN Indications Lower Extremity Pain: Left leg pain, Hx- painful fatty tumors in leg of intrest Vein Imaging CFV (L): compressive, spontaneous, phasic, augmentation SFJ (L): compressive, spontaneous, phasic, augmentation FEM (L): compressive, spontaneous, phasic, augmentation POP (L): compressive, spontaneous, phasic, augmentation DFV (L): compressive, spontaneous, phasic, augmentation PTV (L): compressive, spontaneous, phasic, augmentation GSV (L): compressive, spontaneous, phasic, augmentation SSV (L): compressive, spontaneous, phasic, augmentation Peroneals (L):compressive, spontaneous, phasic, augmentation GAS (L): compressive, spontaneous, phasic, augmentation Findings Color flow duplex demonstrates no evidence of DVT of the following left lower extremity Veins:Common Femoral Vein, Femoral Vein, Popliteal Vein, Posterior Tibial Veins, Peroneal Veins, Deep Femoral Vein. Negative for DVT. Conclusion Negative for DVT. Electronically signed by : Todd Calderon MD 11/17/2020 16:56:09
--- NOTE | 2020-11-17 08:13 | CA_ITS ---
APPROVED REPORT EXAM: Comprehensive 2D, Doppler, and color-flow Echocardiogram Abstract Manager: Annie Montgomery, ARVIN, RVS Ht: 5 ft 6 in Wt: 139lbs BSA: 1.71 BP: 108/70 mmHg Indications: SOA, Palpitations, S/P COVID-19, RA, Hx-MVP? Echo Enhancing Agent Comments: Technically limited exam due to Breast implants and patient intolerance to touch. 2D Dimensions IVSd 0.72 cm LVEF (Visual) 59.60 % PWd 0.72 cm LA Volume 31.70 mL LVDd 5.12 cm LA Volume Index 18.551972 mL/m2 (M/F) 16-34 LVDs 3.49 cm Left Atrium 3.27 cm LVOT 1.96 cm (M/F) 1.5-2.5 M-Mode Dimensions RVDd 1.29 cm (0.9-2.6) LA Diam 2.86 cm (1.9-4.0) LVDd 4.33 cm (3.5-5.7) Ao Diam 3.20 cm (2.0-3.7) IVSd 0.67 cm (0.6-1.1) PWd 0.59 cm (0.6-1.1) EDV (Teich) 84.40 mL LV Diastology E Decel Time 220.00 (160-240 msec) E/A Ratio 1.83 MED E' 9.80 (< 7 cm/sec) MED A' 11.50 cm/s E'/MED E' Ratio 5.93 (>14) LAT E' 10.90 (<10 cm/sec) LAT A' 9.60 cm/s E/LAT E' Ratio 5.33 (>14) Aortic Valve LVOT Max 77.00 (70-110 cm/s) LVOT VTI 15.01 cm AoV Peak Delroy. 101.00 (50-130 cm/s) AO Peak GR. 4.10 mmHg AO Mean GR. 2.00 (<5 mmHg) AO VTI 19.93 (18-25 cm) MATTI (VTI) 2.27 (2.5-4.5 cm2) Mitral Valve MV A Velocity 32.00 (40-130 cm/s) E/A Ratio 1.83 MV Decel. Time 220.00 (160-240 ms) Pulmonary Valve PV Peak Velocity 67.00 (50-150 cm/s) Tricuspid Valve TR P. Velocity 175.00 cm/s RAP Estimate 10.00 mmHg RVSP 22.30 mmHg Left Ventricle Left atrium is normal size, left ventricle is normal size, there is no concentric left ventricular hypertrophy, visually estimated ejection fraction 55% with no regional wall motion abnormality, diastolic parameters are within normal range. Right Ventricle Right atrium and right ventricle are normal size and contractility. Aortic Valve Aortic valve is grossly normal, there is no aortic stenosis or aortic insufficiency. Mitral Valve Mitral valve grossly normal, there is trace mitral regurgitation, there is no obvious mitral valve prolapse seen in this study. Tricuspid Valve Tricuspid valve grossly normal, there is trace tricuspid regurgitation. Tricuspid regurgitation jet velocity is inadequate for calculation of the right ventricular systolic pressure. Pulmonic Valve Pulmonic valve is poorly visualized. Great Vessels Aortic root is normal size. Inferior vena cava is normal size with normal inspiratory collapse. Pericardium No significant pericardial effusion noted. Conclusion 1. Normal left ventricular size, preserved left ventricular systolic function, visually estimated ejection fraction 55% with no regional wall motion abnormality, diastolic parameters are within normal range. 2. Trace mitral and tricuspid regurgitation. No obvious mitral valve prolapse seen in the study. 3. No significant pericardial effusion noted, inferior vena cava is normal size with normal inspiratory collapse. Electronically signed by : Adan Maria MD 11/17/2020 17:09:06
== END ==
LOC: RT 08:13
PROVIDERS: PCP Physician Assistant; Visit Provider Physician Assistant
DX: R06.00 Dyspnea, unspecified (principal); M79.605 Pain in left leg
CPT/HCPCS: 93306; 93971

== ENCOUNTER → 2020-12-24 14:51 | Outpatient (CLI) | payer BC, SELFPAY ==
--- NOTE | 2020-12-24 14:52 | US_ITS ---
PROCEDURE: US CHEST CLINICAL INDICATION: lump right axillary area History of Covid19 COMPARISON: No exams were available for comparison FINDINGS: Ultrasound performed of the right axilla demonstrating several lymph nodes measuring up to 2.9 0.9 cm. Other smaller nodes are present. At least nodes identified. No abnormal fluid collection. No cystic areas. IMPRESSION: Mild right axillary adenopathy Dictated by: Todd Calderon MD 12/24/2020 16:44 Todd Calderon MD in [place] 12/24/2020 16:44
== END ==
PROVIDERS: PCP Physician Assistant; Visit Provider Emergency Medicine
DX: R22.30 Localized swelling, mass and lump, unspecified upper limb (principal)
CPT/HCPCS: 76604

== ENCOUNTER → 2021-01-08 08:30 | Outpatient (CLI) | payer BC, SELFPAY ==
--- NOTE | 2021-01-08 08:30 | MR_ITS ---
PROCEDURE INFORMATION: Exam: MR Head Without Contrast Exam date and time: 01/08/2021 8:30 AM Age: 50 years old Clinical indication: Dizziness; Additional info: Headache. Tinnitus in ears since covid in apr. Dizziness and muscle twitching xyrs but has gotten worse. Exam was suppose to be done with contrast but done without because patient refused. Prior CT 07-08-13 TECHNIQUE: Imaging protocol: MR of the head without contrast. COMPARISON: MR CERVICAL SPINE WO CON 08/27/2020 8:04 AM FINDINGS: Brain: Unremarkable. No acute infarct. No hemorrhage. No significant white matter disease. No edema. No CP angle cistern mass is seen. The internal auditory canals and inner ears are unremarkable. Cerebral ventricles: Normal. No ventriculomegaly. Bones/joints: Unremarkable. Paranasal sinuses: Normal as visualized. No acute sinusitis. Mastoid air cells: Normal as visualized. No mastoid effusion. Soft tissues: Unremarkable. IMPRESSION: Normal brain MRI.
== END ==
PROVIDERS: PCP Physician Assistant; Visit Provider Emergency Medicine
DX: R51.9 Headache, unspecified (principal)
CPT/HCPCS: 70551

== ENCOUNTER → 2021-06-16 15:34 | Outpatient (CLI) | payer BC, SELFPAY ==
[2021-06-16 18:27] LABS: Basophils # 0.1 K/mm3 (0-0.2); Basophils % 1.5 % (0.1-2.0); Eosinophils # 0.1 K/mm3 (0.0-0.4); Eosinophils % 2.4 % (0.1-12.0); Hematocrit 37.4 % (37.0-47.0); Hemoglobin 12.4 g/dL (12.2-16.2); Lymphocytes # 1.7 K/mm3 (0.7-4.5); Lymphocytes % 34.9 % (10-50); Mean Corpuscular HGB Conc 33.2 g/dL (31.8-35.4); Mean Corpuscular Hemoglobin 31.6 pg (27.0-31.2); Mean Corpuscular Volume 95.3 fl (81-99); Mean Platelet Volume 8.7 fl (7.4-10.4); Monocytes # 0.3 K/mm3 (0.1-1.0); Monocytes % 5.8 % (1.7-9.3); Neutrophils # 2.6 K/mm3 (1.8-7.8); Neutrophils % 55.4 % (37.0-80.0); Platelet Count 337 K/mm3 (142-424); Red Blood Count 3.92 M/mm3 (4.20-5.40); Red Cell Distribution Width 13.3 % (11.5-17.5); White Blood Count 4.7 K/mm3 (4.8-10.8)
[2021-06-16 18:56] LABS: Alanine Aminotransferase 40 U/L (12-78); Albumin Level 4.5 g/dl (3.5-5.0); Alkaline Phosphatase 71 U/L (38-126); Anion Gap 10.5 mEq/L (5-15); Aspartate Amino Transferase 27 U/L (14-36); Bilirubin,Total 0.5 mg/dl (0.2-1.3); Blood Urea Nitrogen 16 mg/dl (7-17); Calcium 9.5 mg/dl (8.4-10.2); Carbon Dioxide 32 mmol/L (22.0-30.0); Chloride 101 mmol/L (98-107); Cholesterol 219 mg/dl (140-200); Estimated Glomerular Filt Rate 89 ml/min (>60); GFR (African American) 108 ML/MIN (>60); Globulin 2.2 g/dL (1.3-3.2); Glucose 94 mg/dl (74-100); HDL Cholesterol 72 mg/dl (40-60); Potassium 4.5 mmoL/L (3.5-5.1); Sodium 139 mmol/L (136-145); Total Protein,Serum 6.7 g/dl (6.3-8.2); Triglycerides 237 mg/dl (30-150); VLDL Cholesterol 47 mg/dL (0-40)
[2021-06-16 19:07] LABS: Direct LDL Cholesterol 77.79 mg/dL (100-129)
[2021-06-16 19:18] LABS: Free Thyroxine Index 2.4 ug/dL (5.93-13.13); T4 (Thyroxine) 7.9 ug/dl (5.53-11.0); Triiodothryronine (T3) Uptake 30 % (23.5-40.5)
[2021-06-16 19:31] LABS: Thyroid Stimulating Hormone 1.31 uIU/mL (0.465-4.68)
[2021-06-16 19:45] LABS: Vitamin B12 579 pg/mL (239-931)
== END ==
PROVIDERS: Visit Provider Physician Assistant
DX: Z00.00 Encounter for general adult medical examination without abnormal findings (principal); E53.8 Deficiency of other specified B group vitamins; E55.9 Vitamin D deficiency, unspecified; L65.9 Nonscarring hair loss, unspecified
CPT/HCPCS: 80053; 80061; 82306; 82607; 84436; 84443; 84479; 85025

== ENCOUNTER → 2021-07-02 16:08 | Outpatient (CLI) | payer BC, SELFPAY ==
--- NOTE | 2021-07-02 16:19 | ECG_ITS ---
APPROVED REPORT Exam: Resting ECG HR:71 bpm ECG Measurements Heart Rate 71 AXES WV 152 P 61 QRSd 94 QRS 59 QT 354 T 68 QTc 377 Conclusion SINUS RHYTHM POSSIBLE RIGHT VENTRICULAR CONDUCTION DELAY [RSR (QR) IN V1/V2] BORDERLINE ECG UNCONFIRMED REPORT Electronically signed by : Krishan Burris MD 07/03/2021 08:16:35
[2021-07-02 18:01] LABS: Troponin I < 0.01 ng/ml (0.00-0.034)
== END ==
LOC: LAB 16:09
PROVIDERS: PCP Physician Assistant; Visit Provider Emergency Medicine
DX: R07.9 Chest pain, unspecified (principal)
CPT/HCPCS: 84484; 93005

== ENCOUNTER 2021-08-07 09:16 | Emergency (ER) | payer BC, SELFPAY ==
[2021-08-07 09:36] VITALS: BP 105/68; PULSE 85; RESP 18; TEMP 36.8; O2SAT 96; BMI 22.2
[2021-08-07 09:47] LABS: UTC Influenza A Antigen Negative (Negative); UTC Influenza B Antigen Negative (Negative)
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
[2021-08-07 09:54] VITALS: BP 105/68; PULSE 85; RESP 18; TEMP 36.8
[2021-08-07 10:09] LABS: Strep Scrn Group A (Rapid) Negative (Negative)
== END 2021-08-07 09:58 | disposition home or self-care (01) ==
PROVIDERS: Emergency Provider Nurse Practitioner Family; PCP Physician Assistant
DX: J02.9 Acute pharyngitis, unspecified (principal); R05.9 Cough, unspecified; R51.9 Headache, unspecified; R09.89 Other specified symptoms and signs involving the circulatory and respiratory systems; Z88.1 Allergy status to other antibiotic agents; Z88.6 Allergy status to analgesic agent; Z88.8 Allergy status to other drugs, medicaments and biological substances; F32.A Depression, unspecified; G43.909 Migraine, unspecified, not intractable, without status migrainosus
CPT/HCPCS: 87430; 87804; 99212; G0463

== ENCOUNTER 2022-01-09 20:35 | Emergency (ER) | payer OTHER, BC, SELFPAY ==
[2022-01-09 20:37] VITALS: BP 111/74; PULSE 94; RESP 16; TEMP 36.8; O2SAT 98; BMI 21.7
--- NOTE | 2022-01-09 21:36 | PC.NURSE ---
s/w Dr. Ding regarding pt triage. Verbal order received and placed.
[2022-01-09 21:37] VITALS: BMI 21.7
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
--- NOTE | 2022-01-09 21:55 | PC.NURSE ---
Md at bedside, new verbal orders received and placed
[2022-01-09 22:09] LABS: Basophils # 0.1 K/mm3 (0-0.2); Basophils % 1.6 % (0.1-2.0); Eosinophils # 0.1 K/mm3 (0.0-0.4); Eosinophils % 1.4 % (0.1-12.0); Hematocrit 36.4 % (37.0-47.0); Hemoglobin 12.4 g/dL (12.2-16.2); Lymphocytes # 1.8 K/mm3 (0.7-4.5); Lymphocytes % 34.7 % (10-50); Mean Corpuscular HGB Conc 34.2 g/dL (31.8-35.4); Mean Corpuscular Hemoglobin 31.8 pg (27.0-31.2); Mean Corpuscular Volume 93.1 fl (81-99); Mean Platelet Volume 8.8 fl (7.4-10.4); Monocytes # 0.4 K/mm3 (0.1-1.0); Monocytes % 6.8 % (1.7-9.3); Neutrophils # 2.9 K/mm3 (1.8-7.8); Neutrophils % 55.5 % (37.0-80.0); Platelet Count 287 K/mm3 (142-424); Red Blood Count 3.91 M/mm3 (4.20-5.40); Red Cell Distribution Width 13.6 % (11.5-17.5); White Blood Count 5.2 K/mm3 (4.8-10.8)
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
[2022-01-09 22:13] LABS: Alanine Aminotransferase 14 U/L (12-78); Albumin Level 4.3 g/dl (3.5-5.0); Alkaline Phosphatase 60 U/L (38-126); Anion Gap 12.9 mEq/L (5-15); Aspartate Amino Transferase 19 U/L (14-36); Bilirubin,Total 0.6 mg/dl (0.2-1.3); Blood Urea Nitrogen 20 mg/dl (7-17); Calcium 8.9 mg/dl (8.4-10.2); Carbon Dioxide 28 mmol/L (22.0-30.0); Chloride 102 mmol/L (98-107); Creatinine Clearance Estimated 82 mL/min (50-200); Estimated Glomerular Filt Rate 76 ml/min (>60); GFR (African American) 92 ML/MIN (>60); Globulin 2.2 g/dL (1.3-3.2); Glucose 115 mg/dl (74-100); Potassium 3.9 mmoL/L (3.5-5.1); Sodium 139 mmol/L (136-145); Total Protein,Serum 6.5 g/dl (6.3-8.2)
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
[2022-01-10 00:22] VITALS: BP 98/57; PULSE 80; RESP 17; TEMP 36.7; O2SAT 97
== END 2022-01-10 01:00 | disposition home or self-care (01) ==
PROVIDERS: Emergency Provider Emergency Medicine; PCP Emergency Medicine
DX: S06.0X0A Concussion without loss of consciousness, initial encounter (principal); M54.12 Radiculopathy, cervical region; M54.6 Pain in thoracic spine; S39.012A Strain of muscle, fascia and tendon of lower back, initial encounter; S49.92XA Unspecified injury of left shoulder and upper arm, initial encounter; V89.2XXA Person injured in unspecified motor-vehicle accident, traffic, initial encounter; Z79.890 Hormone replacement therapy; Z79.899 Other long term (current) drug therapy; Z88.6 Allergy status to analgesic agent; Z88.1 Allergy status to other antibiotic agents; Z88.8 Allergy status to other drugs, medicaments and biological substances; D64.9 Anemia, unspecified; M19.90 Unspecified osteoarthritis, unspecified site; Z72.0 Tobacco use; F32.A Depression, unspecified
CPT/HCPCS: 70450; 71045; 71260; 72125; 72128; 72131; 72170; 73030; 73080; 73110; 73562; 73590; 73610; 74177; 80053; 85025; 96365; 99285; Q9967

== ENCOUNTER → 2022-01-24 08:10 | Outpatient (CLI) | payer BC, SELFPAY ==
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
== END ==
PROVIDERS: PCP Physician Assistant; Visit Provider Physician Assistant
DX: M54.12 Radiculopathy, cervical region (principal); M25.512 Pain in left shoulder; S06.0XAA Concussion with loss of consciousness status unknown, initial encounter; R41.3 Other amnesia; G43.909 Migraine, unspecified, not intractable, without status migrainosus; V43.52XA Car driver injured in collision with other type car in traffic accident, initial encounter
CPT/HCPCS: 72141; 76376

== ENCOUNTER → 2022-01-25 08:14 | Outpatient (CLI) | payer BC, SELFPAY ==
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
== END ==
PROVIDERS: PCP Physician Assistant; Visit Provider Physician Assistant
DX: M54.12 Radiculopathy, cervical region (principal); M25.512 Pain in left shoulder; V89.2XXA Person injured in unspecified motor-vehicle accident, traffic, initial encounter
CPT/HCPCS: 73221

== ENCOUNTER 2022-02-23 10:00 | Outpatient (RCR) | payer BC, SELFPAY ==
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
== END 2022-02-23 10:05 | disposition home or self-care (01) ==
LOC: PT 10:00
PROVIDERS: Visit Provider Physician Assistant
DX: M54.2 Cervicalgia (principal); M25.512 Pain in left shoulder
CPT/HCPCS: 97010; 97016; 97033; 97035; 97110; 97140; 97163

== ENCOUNTER 2022-02-26 11:15 | Emergency (ER) | payer BC, SELFPAY ==
[2022-02-26 13:13] VITALS: BP 122/81; PULSE 71; RESP 19; TEMP 36.9; O2SAT 100; BMI 22.6
[2022-02-26 13:22] LABS: UTC Strep Screen (Rapid) Negative (Negative)
--- NOTE | 2022-02-26 13:34 | EXP.UTC ---
Discharge Plan Disposition Patient Disposition: Home, Self-Care Condition: Good Prescriptions Prescriptions: New azithromycin [Zithromax Z-Max] 250 mg tablet See Rx Instructions .ROUTE .COMPLEX 5 Days Qty: 6 0RF Rx Instructions: For 250 mg dose pack: take 500 mg today (day 1), then 250 mg for 4 days (days 2-5) No Action cyanocobalamin (vitamin B-12) 1,000 mcg/mL kit 1,000 mcg IM QMONTH Qty: 1 3RF tizanidine 2 mg tablet 2 mg PO Q8H PRN (Reason: muscle spasticity) Qty: 30 0RF ketorolac 10 mg tablet 10 mg PO TID PRN (Reason: pain) 5 Days Qty: 30 0RF Rx Instructions: IM injection 1155 01/18/2022 ibuprofen 600 mg tablet 600 mg PO Q8H PRN (Reason: pain) Qty: 90 0RF diazepam [Valium] 2 mg tablet 2 mg PO BID PRN (Reason: anxiety) Qty: 30 0RF cholecalciferol (vitamin D3) 25 mcg (1,000 unit) capsule 1,000 unit PO DAILY Qty: 90 0RF Rx Instructions: administer with meals ttohxsslpj-oluncpnfxhhyc-dhrs 50-300-40 mg capsule 1 cap PO Q8H PRN (Reason: pain) Qty: 30 1RF hydrocodone-acetaminophen 7.5-325 mg tablet 1 tab PO Q6H PRN (Reason: pain) Qty: 120 0RF estradiol 0.05 mg/24 hr patch weekly 1 patch TD WEEKLY fluoxetine 10 mg capsule 10 mg PO DAILY Referrals Follow up/Referrals: Farheen Joy PA [Primary Care Provider] - See instructions Activity Restrictions/Add. Instructions Additional Instructions/Restrictions: *Monitor Temp, Over the counter Motrin or Tylenol as directed/as needed Tylenol every 4 hours and Motrin every 6 hours (as long as your family doctor has told you that you can take it) for fever or pain. and straight to ER if unable to lower temp less than 101.0 after medication given *Warm salt water gargles may help to soothe the throat *Throat Lozenges? *Warm fluids like tea with honey may help to soothe the throat? *Sleep elevated *Humidifier/Vaporizer Take medication as prescribe Your throat swab was sent for culture. Those results are typically sent to your primary care. Be sure to follow up in 2-3 days with your family doctor/primary care physician if no improvement so they can review those result and treat if necessary. If you don?t have a primary care doctor, I recommend you get one but in the mean time, you will have to return to a walk in clinic Follow up IMMEDIATELY for new or worsening symptoms or no Noticeable improvement over the next 48-72 hours. 911 for difficulty breathing or swallowing Instructions Patient Instructions: Azithromycin, DI for Pharyngitis/Tonsillopharyngitis -- Adult Discharge ED [place]: [place] Kee [facility] [place] [facility] [place] General Stated complaint: sore throat, BUTCHER, cough, fever Time Seen by Provider: 02/26/22 13:34 Description of Symptoms (Recalled from Triage Doc. by RN): PT C/O SORE THROAT, HEADACHE, AND DRY COUGH X'S 3 DAYS HEENT Symptoms (Recalled from RN notes): Yes Resp Symptoms (Recalled from RN notes): Yes Skin Symptoms (Recalled from RN notes): No MS Symptoms (Recalled from RN notes): No Functional Status (Recalled from RN notes): WNL History of Present Illness Provider Complaint: Patient states that she has been having sore throat, pressure in her ears, dry cough and headache for several days State that she was worried that she may have strep throat Related Data Home Medications Medication Instructions Recorded Confirmed estradiol 0.05 mg/24 hr weekly 1 patch transdermal WEEKLY hormore 01/09/22 02/15/22 transdermal patch fluoxetine 10 mg capsule 10 mg PO DAILY Depression 01/09/22 02/15/22 Previous Rx's Medication Instructions Recorded diazepam 2 mg tablet (Valium) 2 mg PO BID PRN anxiety #30 tabs 02/22/21 ibuprofen 600 mg tablet 600 mg PO Q8H PRN pain #90 tabs 02/22/21 cholecalciferol (vitamin D3) 25 1,000 unit PO DAILY Supplement #90 06/16/21 mcg (1,000 unit) capsule caps cyanocobalamin (vitamin B-12) 1,000 mcg IM QMONTH Supplement #1 10/21/21 1,000 mcg
[2022-02-26 14:00] VITALS: BP 122/81; PULSE 71; RESP 19; TEMP 36.9; O2SAT 100
== END 2022-02-26 14:02 | disposition home or self-care (01) ==
PROVIDERS: Emergency Provider Nurse Practitioner; PCP Physician Assistant
DX: J02.9 Acute pharyngitis, unspecified (principal); R51.9 Headache, unspecified; R05.9 Cough, unspecified; R50.9 Fever, unspecified
CPT/HCPCS: 87880; 99212; G0463

== ENCOUNTER → 2022-03-01 14:50 | Outpatient (CLI) | payer BC, SELFPAY ==
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
== END ==
PROVIDERS: PCP Physician Assistant; Visit Provider Physician Assistant
DX: M79.602 Pain in left arm (principal); R60.0 Localized edema
CPT/HCPCS: 93971

== ENCOUNTER → 2022-03-10 10:56 | Outpatient (CLI) | payer BC, SELFPAY ==
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
== END ==
PROVIDERS: PCP Physician Assistant; Visit Provider Physician Assistant
DX: R49.9 Unspecified voice and resonance disorder (principal)
CPT/HCPCS: 70490

== ENCOUNTER → 2022-03-30 14:40 | Outpatient (CLI) | payer BC, SELFPAY ==
[2022-03-30 18:08] LABS: Adenovirus,PCR Not Detected (NotDetected); Bordetella Pertussis Not Detected (NotDetected); Chlamydophila Pneumoniae, PCR Not Detected (NotDetected); Coronavirus 229E Not Detected (NotDetected); Coronavirus NL63 Not Detected (NotDetected); Coronavirus OC43 Not Detected (NotDetected); Coronovirus HKU1,PCR Not Detected (NotDetected); Human Metapneumovirus Not Detected (NotDetected); Influenza A, PCR Not Detected (NotDetected); Influenza AH1, PCR Not Detected (NotDetected); Influenza AH3,PCR Not Detected (NotDetected); Influenza B, PCR Not Detected (NotDetected); Mycoplasma Pneumoniae, PCR Not Detected (NotDetected); Parainfluenza 1, PCR Not Detected (NotDetected); Parainfluenza 2, PCR Not Detected (NotDetected); Parainfluenza 3, PCR Not Detected (NotDetected); Parainfluenza 4, PCR Not Detected (NotDetected); Respiratory Syncytial Virus Not Detected (NotDetected); Rhinovirus/Enterovirus Not Detected (NotDetected)
[2022-03-30 20:25] LABS: Coronavirus 19, PCR Detected (NotDetected); Influenza AH1, 2009 Not Detected (NotDetected)
== END ==
PROVIDERS: PCP Nurse Practitioner Family; Visit Provider Nurse Practitioner Family
DX: U07.1 COVID-19 (principal); R06.02 Shortness of breath; R09.89 Other specified symptoms and signs involving the circulatory and respiratory systems; J02.9 Acute pharyngitis, unspecified
CPT/HCPCS: 87581; 87632; 87798; C9803; U0003; U0005

== ENCOUNTER 2022-07-14 14:00 | Outpatient (RCR) | payer BC, SELFPAY | END 2022-07-14 14:05 | disposition home or self-care (01) | LOC: OT 14:00 | PROVIDERS: Visit Provider Orthopaedic Surgery | DX: M75.112 Incomplete rotator cuff tear or rupture of left shoulder, not specified as traumatic (principal) | CPT/HCPCS: 97010; 97014; 97035; 97110; 97140; 97164; 97165; 97530; G0283 ==

== ENCOUNTER → 2023-02-07 09:24 | Outpatient (CLI) | payer BC, SELFPAY ==
[2023-02-07 18:20] LABS: Coronavirus 19, PCR Not Detected (NotDetected); Influenza A, PCR Not Detected (NotDetected); Influenza B, PCR Not Detected (NotDetected)
--- OUTSIDE RECORDS SUMMARY | 2023-02-08 09:27 | XMS_ITS ---
Author Name Unknown Address [address] [place] [address] Phone Organization [facility] Address [address] [place] [address] Phone Care Team Providers Care Server Support Technician Name Role Phone Heath ABDI, Lamont Alexander Unavailable [phone] Farheen Joy PA-C Primary Care Provider [phone] Problems Includes: Active, inactive, and resolved Problems All Visits Onset Date Resolved Date Provider Condition S tatus Joint Pain, Localized in the Left Shoulder 02/16/2022 Cr walker MD Active Plan of Treatment No Plan of Treatment Recorded Assessments Includes: Assessments for all patient encounters No Assessments Recorded Medical Equipment - Implanted Devices Includes: Current and historical Devices No Medical Equipment Recorded Medications Includes: Current and historical Medications Current Medications (continue as prescribed) Ketorolac Tromethamine 10 MG Oral Tablet 01/18/2022 Provider: Diagnosis: tiZANidine HCl 2 MG Oral Tablet 01/18/2022 Provider: Diagnosis: FLUoxetine HCl 10 MG Oral Capsule 01/17/2022 Provide r:
--- OUTSIDE RECORDS SUMMARY | 2023-02-08 09:27 | XMS_ITS ---
Care Plan - [facility] Created on: February 08, 2023 Marcella Perry : 1970 Sex: Female Author Name Unknown Address [address] [place] [address] Phone Organization [facility] Address [address] [place] [address] Phone Care Team Providers Care Ordnance Truck Installation Mechanic Name Role Phone Heath ABDI, Lamont Alexander Unavailable [phone] Farheen Joy PA-C Primary Care Provider [phone]
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
== END ==
PROVIDERS: PCP Physician Assistant; Visit Provider Physician Assistant
DX: R68.89 Other general symptoms and signs (principal); J02.9 Acute pharyngitis, unspecified; R05.9 Cough, unspecified; R51.9 Headache, unspecified; Z20.822 Contact with and (suspected) exposure to COVID-19
CPT/HCPCS: 87636

== ENCOUNTER → 2023-03-08 22:00 | Outpatient (CLI) | payer BC, SELFPAY ==
[2023-03-08 19:04] LABS: Basophils % 0.7 % (0.1-2.0); Eosinophils # 0.2 K/mm3 (0.0-0.4); Eosinophils % 4.2 % (0.1-12.0); Hematocrit 39.1 % (37.0-47.0); Hemoglobin 12.8 g/dL (12.2-16.2); Lymphocytes # 1.5 K/mm3 (0.7-4.5); Lymphocytes % 33.9 % (10-50); Mean Corpuscular HGB Conc 32.9 g/dL (31.8-35.4); Mean Corpuscular Hemoglobin 31.1 pg (27.0-31.2); Mean Corpuscular Volume 94.5 fl (81-99); Mean Platelet Volume 9.1 fl (7.4-10.4); Monocytes # 0.3 K/mm3 (0.1-1.0); Monocytes % 6.1 % (1.7-9.3); Neutrophils # 2.4 K/mm3 (1.8-7.8); Neutrophils % 55.1 % (37.0-80.0); Platelet Count 289 K/mm3 (142-424); Red Blood Count 4.13 M/mm3 (4.20-5.40); Red Cell Distribution Width 13.4 % (11.5-17.5); White Blood Count 4.4 K/mm3 (4.8-10.8)
[2023-03-08 19:15] LABS: Alanine Aminotransferase 44 U/L (12-78); Albumin Level 4.5 g/dl (3.5-5.0); Albumin/Globulin Ratio 1.8 (1.1-1.8); Alkaline Phosphatase 68 U/L (38-126); Anion Gap 9.2 mEq/L (5-15); Aspartate Amino Transferase 31 U/L (14-36); Bilirubin,Total 0.6 mg/dl (0.2-1.3); Blood Urea Nitrogen 12 mg/dl (7-17); Calcium 9.4 mg/dl (8.4-10.2); Carbon Dioxide 29 mmol/L (22.0-30.0); Chloride 103 mmol/L (98-107); Chol/HDL Ratio 3.9 (1-3.5); Cholesterol 258 mg/dl (140-200); Estimated Glomerular Filt Rate 89 ml/min (>60); GFR (African American) 107 ML/MIN (>60); Globulin 2.5 g/dL (1.3-3.2); Glucose 79 mg/dl (74-100); HDL Cholesterol 66 mg/dl (40-60); Potassium 4.2 mmoL/L (3.5-5.1); Sodium 137 mmol/L (136-145); Triglycerides 243 mg/dl (30-150); VLDL Cholesterol 49 mg/dL (0-40)
[2023-03-08 19:31] LABS: Free T4 (Free Thyroxine) 0.91 ng/dl (0.78-2.19)
[2023-03-08 19:32] LABS: 25-OH Vitamin D, Total 33.8 ng/mL (30-100)
[2023-03-08 19:45] LABS: Thyroid Stimulating Hormone 0.96 uIU/mL (0.465-4.68)
== END ==
PROVIDERS: PCP Physician Assistant; Visit Provider Physician Assistant
DX: E03.9 Hypothyroidism, unspecified (principal); R53.83 Other fatigue; K59.00 Constipation, unspecified
CPT/HCPCS: 80053; 80061; 82306; 84439; 84443; 85025

== ENCOUNTER 2023-04-20 20:08 | Outpatient (CLI) | payer BC, SELFPAY ==
[2023-04-20 20:47] LABS: Amphetamine/Metha Screen,Urine Negative ng/ml (<1000); Barbiturates Screen,Urine Negative ng/ml (<200)
[2023-04-20 20:48] LABS: Benzodiazepines Screen,Urine Negative ng/ml (<200)
[2023-04-20 20:50] LABS: Cocaine Screen,Urine Negative ng/ml (<300); Methadone Screen,Urine Negative ng/ml (<300)
[2023-04-20 20:51] LABS: Opiate Screen,Urine Positive ng/ml (<300)
[2023-04-20 20:52] LABS: Phencyclidine Screen,Urine Negative ng/ml (<25)
[2023-04-20 21:35] LABS: Cannabinoid Screen,Urine Negative ng/ml (<50)
== END 2023-04-20 23:59 ==
LOC: LAB.DROPOF 20:09
PROVIDERS: PCP Physician Assistant; Visit Provider Physician Assistant
DX: Z79.899 Other long term (current) drug therapy (principal); M06.9 Rheumatoid arthritis, unspecified
CPT/HCPCS: 80307

== ENCOUNTER 2023-08-10 12:51 | Outpatient (CLI) | payer BC, SELFPAY ==
--- NOTE | 2023-08-10 13:04 | MM_ITS ---
PROCEDURE INFORMATION: Exam: US Right Breast, Complete MG Bilateral Diagnostic Breast Tomosynthesis Exam date and time: 08/10/2023 12:54 PM Age: 52 years old Clinical indication: Right breast palpable lump; Pain and fatty pad under RT armpit TECHNIQUE: Imaging protocol: Complete ultrasound of all four quadrants of the right breast and the retroareolar regions, including ultrasound of the axilla when performed. Bilateral Diagnostic tomosynthesis and 2D mammography including computer-aided detection (CAD) when performed. Unilateral or bilateral exam. COMPARISON: 1. MG MM DIG SC MAMM IMPLANT BI CAD 01/25/2019 8:33 AM 2. BR US BREAST-RT COMPLETE W/AXILLA 09/12/2016 11:13 AM FINDINGS: MAMMOGRAPHY: Breast composition: The breasts are heterogeneously dense, which may obscure small masses. Breast mammogram findings: There is no stellate mass, architectural distortion or suspicious microcalcifications in either breast to suggest malignancy. No skin thickening or axillary adenopathy. Subpectoral saline breast implants are present. ULTRASOUND: Breast ultrasound findings: Sonographic images of the right breast including the retroareolar region, all 4 quadrants and the axilla do not demonstrate any solid or cystic masses. No architectural distortion or acoustical shadowing. No skin thickening or axillary adenopathy. No focal suspicious findings in the right axilla where the patient reports a palpable abnormality. 1.5 cm fat containing normal-appearing right axillary lymph node is noted. IMPRESSION: Palpable abnormality in the right axilla corresponds both mammographically and sonographically to normal anatomic structures. There is no mammographic evidence of malignancy. Further evaluation of a palpable abnormality should be based on clinical grounds regardless of radiographic findings or lack thereof. Annual mammographic screening is recommended unless otherwise clinically indicated. ASSESSMENT: BI-RADS Category 1: Negative.
== END 2023-08-10 23:59 | disposition home or self-care (01) ==
LOC: RAD 12:51
PROVIDERS: PCP Physician Assistant; Visit Provider Physician Assistant
DX: R22.31 Localized swelling, mass and lump, right upper limb
CPT/HCPCS: 76641; 77062; 77066; G0279

== ENCOUNTER 2023-10-23 10:23 | Outpatient (CLI) | payer BC, SELFPAY ==
[2023-10-23 16:39] LABS: Coronavirus 19, PCR Not Detected (NotDetected); Influenza A, PCR Not Detected (NotDetected); Influenza B, PCR Not Detected (NotDetected)
== END 2023-10-23 23:59 | disposition home or self-care (01) ==
LOC: LAB.DROPOF 10-24 10:23
PROVIDERS: PCP Physician Assistant; Visit Provider Physician Assistant
DX: R06.02 Shortness of breath (principal)
CPT/HCPCS: 87636

== ENCOUNTER 2024-03-12 16:14 | Outpatient (CLI) | payer BC, SELFPAY ==
[2024-03-12 20:05] LABS: Alanine Aminotransferase 18 U/L (12-78); Albumin Level 4.4 g/dl (3.5-5.0); Albumin/Globulin Ratio 2.2 (1.1-1.8); Alkaline Phosphatase 61 U/L (38-126); Anion Gap 9.4 mEq/L (5-15); Aspartate Amino Transferase 27 U/L (14-36); Bilirubin,Total 0.5 mg/dl (0.2-1.3); Blood Urea Nitrogen 14 mg/dl (7-17); Calcium 9.6 mg/dl (8.4-10.2); Carbon Dioxide 29 mmol/L (22.0-30.0); Chloride 105 mmol/L (98-107); Chol/HDL Ratio 4.1 (1-3.5); Cholesterol 251 mg/dl (140-200); Estimated Glomerular Filt Rate 76 ml/min (>60); GFR (African American) 92 ML/MIN (>60); Glucose 89 mg/dl (74-100); HDL Cholesterol 61 mg/dl (40-60); Potassium 4.4 mmoL/L (3.5-5.1); Sodium 139 mmol/L (136-145); Total Protein,Serum 6.4 g/dl (6.3-8.2); Triglycerides 231 mg/dl (30-150); VLDL Cholesterol 46 mg/dL (0-40)
== END 2024-03-12 23:59 | disposition home or self-care (01) ==
LOC: LAB.DROPOF 03-13 10:43
PROVIDERS: PCP Family Medicine; Visit Provider Family Medicine
DX: E78.5 Hyperlipidemia, unspecified (principal)
CPT/HCPCS: 80053; 80061

== ENCOUNTER 2024-12-12 09:22 | Outpatient (CLI) | payer BC, SELFPAY ==
[2024-12-12 14:56] LABS: Hematocrit 38.4 % (37.0-47.0); Hemoglobin 12.8 g/dL (12.2-16.2); Immature Granulocytes % 0.4 %; Mean Corpuscular HGB Conc 33.3 g/dL (31.8-35.4); Mean Corpuscular Hemoglobin 30.8 pg (27.0-31.2); Mean Corpuscular Volume 92.5 fl (81-99); Nucleated Red Blood Cells % 0 %; Platelet Count 298 K/mm3 (142-424); Red Blood Count 4.15 M/mm3 (4.20-5.40); Red Cell Distribution Width-SD 42.6 fL; White Blood Count 4.7 K/mm3 (4.8-10.8)
[2024-12-12 15:29] LABS: Free T4 (Free Thyroxine) 0.93 ng/dl (0.78-2.19)
[2024-12-12 15:32] LABS: Chloride 108 mmol/L (98-107)
[2024-12-12 15:33] LABS: Albumin Level 4.8 g/dl (3.5-5.0); Potassium 4.9 mmoL/L (3.5-5.1); Sodium 139 mmol/L (136-145)
[2024-12-12 15:35] LABS: Alanine Aminotransferase 20 U/L (12-78); Alkaline Phosphatase 65 U/L (38-126); Anion Gap 11.9 mEq/L (5-15); Aspartate Amino Transferase 28 U/L (14-36); Bilirubin,Total 0.8 mg/dl (0.2-1.3); Blood Urea Nitrogen 22 mg/dl (7-17); Carbon Dioxide 24 mmol/L (22.0-30.0); Creatinine,Serum 0.80 mg/dl (0.52-1.04); Estimated Glomerular Filt Rate 76 ml/min (>60); GFR (African American) 92 ML/MIN (>60)
[2024-12-12 15:36] LABS: Albumin/Globulin Ratio 2.1 (1.1-1.8); Calcium 9.6 mg/dl (8.4-10.2); Cholesterol 250 mg/dl (140-200); Globulin 2.3 g/dL (1.3-3.2); Glucose 112 mg/dl (74-100); HDL Cholesterol 74 mg/dl (40-60); Total Protein,Serum 7.1 g/dl (6.3-8.2); Triglycerides 84 mg/dl (30-150)
[2024-12-12 16:09] LABS: Thyroid Stimulating Hormone 0.78 uIU/mL (0.465-4.68)
[2024-12-12 17:12] LABS: C-Reactive Protein 2.8 mg/L (0-4)
--- OUTSIDE RECORDS SUMMARY | 2024-12-13 10:47 | XMS_ITS | Clinical Summary ---
Author Organization [facility] Address [address] [place] [address] Care Team Providers Care Activated Sludge Operator Name Role Phone Farheen Joy Primary Care Provider [phone] Allergies Active Allergy Reactions Criticality Noted Date Comments Codeine Itching,Rash Low 03/21/2022 Levofloxacin Myalgia 03/21/2022 Promethazine Other (See Comments) 03/21/2022 Very drowsy with this medication- Takes small breathes when has it - no big deep breathes Zinc Other (See Comments) 03/21/2022 Oral zinc- canker sores all over mouth Medications FLUoxetine (PROzac) 10 MG capsule Take 10 mg by mouth Daily. Active HYDROcodone-sam taminophen (NORCO) 7.5-325 MG per tablet Take 1 tablet by mouth Every 6 (Six) Hours As Needed for Moderate Pain. Active docusate sodium (COLACE) 100 MG capsule Take 1 capsule by mouth 2 (Two) Times a Day. 20 capsule 03/22/2022 2:14 PM EST 03/22/2022 Active ondansetron (Zofran) 4 MG tablet Take 1 tablet by mouth Every 8 (Eight) Hours As Needed for Nausea or Vomiting. 9 tablet 03/22/2022 2:14 PM EST 03/22/2022 Active oxyCODONE (ROXICODONE) 5 MG immediate release tabletIndicatio ns:Incomplete rotator cuff tear or rupture of left shoulder, not specified as traumatic Take 1-2 tablets by mouth Every 4 (Four) Hours As Needed for Moderate Pain. 24 tablet 03/22/2022 2:14 PM EST 03/22/2022 Active Active Problems No known active problems Social History Tobacco Use Types Packs/Day Years Used Date Smoking Tobacco: Never Smokeless Tobacco: Never Tobacco Cessation:Counseling Given: Not Answered Alcohol Use Standard Drinks/Week Comments Never 0 (1 standard drink = 0.6 oz pur e alcohol) Abuse Screen Answer Date Recorded Unsafe at Home or Work/School Not on file Feels Threatened by Someone? Not on file 03/2024 Does Anyone Keep You from Co ntacting Others or Doint Things Outside the Home? Not on file 04/14/2023 Physical Sign of Abuse Present Not on file 0 04/14/2023 Housing Stability Answer Date Recorded Current Living Arrangements Not on file 04/03 Potentially Unsafe Housing Conditions Not on skylar e 04/14/2023 Family and Community Support Answer Oscar e Recorded Help with Day-to-Day Activities Not on file 01/09/2023 Lonely or Isolated Not on file 01/09/2023 Employment Answer Date Recorded Do you want help finding or keeping work or a earl b? Not on file 01/09/2023 Disabilities Answer Date Recorded Concentrating, Remembering, or Making Decisions Difficulty Not on file 04/14/2023 Doing Errands Independently Difficulty Not on fi le 04/14/2023 Education Answer Date Recorded Help with school or training? Not on file Preferred Language Not on file 04/14/2023 Comments No Sex and Gender Information Value Date Recorded Sex Assigned at Not on file Legal Sex Female 12:20 PM EDT Gender Identity Not on file Sexual Orientation Not on file Last Filed Vital Signs Vital Sign Reading Time Taken Comments Blood Pressure 115/77 03/22/2022 2:00 PM EST Pulse 68 03/22/2022 2:00 PM EST Temperature 36.4 C (97.5 F) 03/22/2022 1:22 PM EST Respiratory Rate 15 03/22/2022 2:00 PM EST Oxygen Saturation 100% 03/22/2022 2:00 PM EST Inhaled Oxygen Concentration - - Weight 62.6 kg (138 lb) 03/22/2022 9:49 AM EST Height 167.6 cm (5' 6 ) 03/22/2022 9:49 AM EST Body Mass Index 22.27 03/22/2022 9:49 AM EST Plan of Treatment Health Maintenance Due Date Last Done Comments Annual Gynecologic Pelvic an d Breast Exam 1970 TDAP/TD VACCINES (1 - Tdap) 12/24/1991 MAMMOGRAM 2012 COLOGUARD 2017 COLON CANCER SCREENING 5 YEA R SIGMOIDOSCOPY 2017 COLONOSCOPY 2017 COLORECTAL CANCER SCREENING 2017 CT COLONOGRAPHY 2017 FECAL OCCULT BLOOD TEST 2017 FIT Testing (1 year) 2017 ANNUAL PHYSICAL 03/09/2022 HEPATITIS C SCREENING 03/09/2022 Pneumococcal Vaccine 50+ (1 of 1 - PCV) 2022 ZOSTER VACCINE (1 of 2) 2022 COVID-19 Vaccine ( - season) 2024 08/04/2021, 02/07/2021, 01/19/2021 INFLUENZA VACCINE 01/01/2025 Medical Devices Implanted Type Area Corporate Consultant Device Identifier Shelf Expiration Date Model / Serial / Lot Sut/Anch Gryphon/P Br W/Dynacord - [id number] Implanted:Qty: 1 on 03/22/2022 by Leandro Marsh Jr., MD at [facility] Implant Left: Shoulder DEPUY MITEK 08/31/2024 [id number] / / [id number] Anchr Bone Regeneten Adv W/Del Sys Ea/3 - [id number] Implanted:Qty: 1 on 03/22/2022 by Leandro Marsh Jr., MD at [facility] Implant Left: Shoulder HARDY AND NEPHEW 11/20/2024 [id number] / / [id number] Carlr Tndn Regeneten Tiss/Sft Ea/8 - [id number] Implanted:Qty: 1 on 03/22/2022 by Leandro Marsh Jr., MD at [facility] Implant Left: Shoulder HARDY AND NEPHEW 12/15/2024 [id number] / / [id number] Tiss Synth Regeneten Bioinductive W/Del Dev - [id number] Implanted:Qty: 1 on 03/22/2022 by Leandro Marsh Jr., MD at [facility] Implant Left: Shoulder HARDY AND NEPHEW 10/12/2024 [id number] / / [id number] Sut/Anch Tenolok W/1 Hi/Fi Sut Nmbr2 6.5mm 5mm - [id number] Implanted:Qty: 1 on 03/22/2022 by Leandro Marsh Jr., MD at [facility] Implant Left: Shoulder CONMED LAVONNE 07/12/2024 [id number] / / [id number] Implant Description:x1 dental implan t, Bilat breast implants Insurance PPO Care Teams Activated Sludge Operator Relationship Specialty Start Date End Date Farheen Joy PA PCP - General Physician Conventional Mortgage Underwriter 03/21/22
== END 2024-12-12 23:59 | disposition home or self-care (01) ==
LOC: LAB.DROPOF 12-13 10:45
PROVIDERS: PCP Family Medicine; Visit Provider Family Medicine
DX: E03.9 Hypothyroidism, unspecified (principal); E78.5 Hyperlipidemia, unspecified; R07.9 Chest pain, unspecified; M06.09 Rheumatoid arthritis without rheumatoid factor, multiple sites
CPT/HCPCS: 80053; 80061; 84439; 84443; 85025; 86140

== ENCOUNTER 2024-12-31 08:06 | Outpatient (CLI) | payer BC, SELFPAY ==
--- NOTE | 2024-12-31 08:14 | CA_ITS ---
APPROVED REPORT EXAM: Comprehensive 2D, Doppler, and color-flow Echocardiogram System Manager: Annie Montgomery, RCS, RVS Ht: 5 ft 4 in Wt: 150lbs BSA: 1.73 BP: 120/78 mmHg Indications: CHEST PAIN 2D Dimensions IVSd 0.75 cm F: 0.6-1.0 LVEF (Visual) 43.30 % PWd 0.83 cm F: 0.6 - 1.0 LA Volume 25.10 mL LVDd 4.48 cm F: 3.9 - 5.3 LA Volume Index 14.51 mL/m2 (M/F) 16-34 LVDs 3.53 cm F: 2.2 - 3.5 EF AP2 54.6 % Left Atrium 2.37 cm F: 2.7 - 3.8 GL Strain -14.4 % M-Mode Dimensions LA Diam 2.86 cm (1.9-4.0) LVDd 4.17 cm (3.5-5.7) LVDs 3.06 cm (3.5-5.7) EF (Teich) 52.50% EPSs 0.67 cm FS 26.60% EDV (Teich) 77.30 mL TAPSE 2.01 (<1.7) ESV (Teich) 36.70 mL LV Diastology E Decel Time 133 (160-240 msec) E/A Ratio 1.08 MED A' 10.70 cm/s LAT A' 9.10 cm/s Aortic Valve MATTI Index 1.05 cm2/m2 AoV Peak Delroy. 94.0 (50-130 cm/s) AO Peak GR. 3.60 mmHg AO Mean GR. 1.80 (<5 mmHg) AO VTI 17.3 (18-25 cm) MATTI (VTI) 1.86 (2.5-4.5 cm2) Mitral Valve MV A Velocity 53.0 (40-130 cm/s) E/A Ratio 1.08 Left Ventricle The left ventricle is normal size. Left ventricular systolic function is normal. The left ventricular ejection fraction is within the normal range. There is normal left ventricular wall thickness. There is normal LV segmental wall motion. The left ventricular diastolic function is normal. LVEF is 55% Right Ventricle The right ventricle is normal size. The right ventricular systolic function is normal. Atria The left atrium size is normal. The right atrium size is normal. There is no color Doppler evidence of interatrial shunt. Aortic Valve The aortic valve opens well. There is no hemodynamically significant aortic valvular stenosis. No aortic regurgitation is present. Mitral Valve The mitral valve is normal in structure. No evidence of mitral valve stenosis. Trace mitral regurgitation is present. Tricuspid Valve The tricuspid valve leaflets are thin and pliable. Trace tricuspid regurgitation. There is insufficient TR jet to estimate RVSP. Pulmonic Valve The pulmonary valve is grossly normal in structure. Trace pulmonic valve regurgitation is present. Great Vessels The aortic root is normal in size. IVC is normal in size and collapses >50% with inspiration. Pericardium There is no pericardial effusion. Other Information Study Quality: Fair Conclusion Normal biventricular systolic function. No significant valvular stenosis or regurgitation. Electronically signed by : Bekah Ken MD 01/01/2025 17:32:37
--- OUTSIDE RECORDS SUMMARY | 2024-12-31 08:14 | XMS_ITS | Clinical Summary ---
Author Organization [facility] Address [address] [place] [address] Care Team Providers Care Noodle Maker Name Role Phone Farheen Joy Primary Care Provider [phone] Allergies Active Allergy Reactions Criticality Noted Date [...] Date Last Done Comments Annual Gynecologic Pelvic and Breast Exam 1970 TDAP/TD VACCINES (1 - Tdap) 12/24/1991 MAMMOGRAM 2012 COLOGUARD 2017 COLON CANCER SCREENING 5 YEAR SIGMOIDOSCOPY 2017 COLONOSCOPY 2017 COLORECTAL CANCER SCREENING 2017 CT COLONOGRAPHY 2017 FECAL OCCULT BLOOD TEST 2017 FIT Testing (1 year) 2017 ANNUAL PHYSICAL 03/09/2022 HEPATITIS C SCREENING 03/09/2022 Pneumococcal Vaccine 50+ (1 of 1 - PCV) 2022 ZOSTER VACCINE (1 of 2) 2022 INFLUENZA VACCINE 11/01/2024 Medical Devices Implanted Type Area Magnetic Observer Device Identifier Shelf Expiration Date Model / Serial / Lot Sut/Anch Gryphon/P Br W/Dynacord - [id number] Implanted:Qty: 1 on 03/22/2022 by Leandro Marsh Jr., MD at [facility] Implant Left: Shoulder DEPUY MITEK 08/31/2024 [id number] / / [id number] Anchr Bone Regeneten Adv W/Del Sys Ea/3 - [id number] Implanted:Qty: 1 on 03/22/2022 by Leandro Marsh Jr., MD at [facility] Implant Left: Shoulder HARDY AND NEPHEW 11/20/2024 [id number] / / [id number] Anchr Tndn Regeneten Tiss/Sft Ea/8 - [id number] Implanted:Qty: 1 on 03/22/2022 by Leandro Marsh Jr., MD at [facility] Implant Left: Shoulder HARDY AND NEPHEW 12/15/2024 [id number] / / [id number] Tiss Synth Regeneten Bioinductive W/Del Dev Md - [id number] Implanted:Qty: 1 on 03/22/2022 by Leandro Marsh Jr., MD at [facility] Implant Left: Shoulder HARDY AND NEPHEW 10/12/2024 [id number] / / [id number] Sut/Anch Tenolok W/1 Hi/Fi Sut Nmbr2 6.5mm 5mm - [id number] Implanted:Qty: 1 on 03/22/2022 by Leandro Marsh Jr., MD at [facility] Implant Left: Shoulder CONMED LAVONNE 07/12/2024 [id number] / / [id number] Implant Description:x1 dental implan t, Bilat breast implants Insurance [facility] PPO Care Teams Noodle Maker Relationship Specialty Start Date End Date Farheen Joy PA PCP - General Physician Dry Starch Operator 03/21/22
== END 2024-12-31 23:59 | disposition home or self-care (01) ==
LOC: RT 08:06
PROVIDERS: PCP Family Medicine; Visit Provider Family Medicine
DX: R07.9 Chest pain, unspecified (principal)
CPT/HCPCS: 93306